=== PATIENT | female | born 1990 | race Two or more races ===

== ENCOUNTER 2016-04-24 07:52 | Emergency (ER) | payer OTHER ==
[~2016-04-24] VITALS: Ht 160 cm; Wt 110.0 kg
[2016-04-24 07:55] VITALS: Ht 160 cm; Wt 110.0 kg
[2016-04-24] MEDS ORDERED: AMO500 PO (08:49)
[2016-04-24] MEDS ORDERED: IBUP-1542 PO (08:50)
--- NOTE | 2016-04-24 08:56 | ERD ---
ER Documentation Chief Complaint Date/Time DATE: 04/24/16 TIME: 08:[address],cough x 4 days HPI 25-year-old female who presents to the emergency department today complaining of sore throat for the past 4 days. States it is worse this morning. States she is having difficulty swallowing. States she has also had intermittent cough. States she is taking Advil for pain. Dates she thinks that yesterday she had a fever. This is a Denies any vomiting, headache or diarrhea ROS All systems reviewed and are negative except as per history of present illness. Medications Home Meds Active Scripts Ibuprofen* (Motrin*) 600 Mg Tab, 600 MG PO Q6, #30 TAB Prov:PAULO PICKARD PA-C 04/24/16 Amoxicillin* (Amoxicillin*) 500 Mg Cap, 500 MG PO TID for 10 Days, CAP Prov:PAULO PICKARD PA-C 04/24/16 Allergies Allergies: Coded Allergies: No Known Allergies (Verified Allergy, Mild, 03/04/11) PMhx/Soc History of Surgery: Yes (C/SECTION X1) Anesthesia Reaction: No Hx Neurological Disorder: No Hx Respiratory Disorders: No Hx Cardiac Disorders: No Hx Psychiatric Problems: No Hx Miscellaneous Medical Probl: No Hx Alcohol Use: No Hx Substance Use: No Hx Tobacco Use: No Physical Exam Vitals Vital Signs Date Time Temp Pulse Resp B/P Pulse Ox O2 Delivery O2 Flow Rate FiO2 04/24/16 07:55 98.3 89 18 121/72 99 Physical Exam Const: B's, No acute distress Head: Atraumatic Eyes: Normal Conjunctiva ENT: Ears TMs normal. Nose no drainage. Throat with bilateral tonsillar swelling and right-sided tonsillar exudate. Erythematous. Tenderness to palpation bilateral submandibular lymph nodes Neck: Full range of motion..~ No meningismus. Resp: Clear to auscultation bilaterally Cardio: Regular rate and rhythm, no murmurs Abd: Soft, non tender, non distended. Normal bowel sounds Ext: No cyanosis, or edema Neur: Awake and alert Psych: Normal Mood and Affect Results 24 hrs Current Medications Medications (Trade) Dose Ordered Sig/Kevin Route PRN Reason Start Time Stop Time Status Last Admin Dose Admin Dexamethasone (Decadron) 10 mg ONCE ONCE IM 04/24/16 09:00 04/24/16 09:01 04/24/16 08:37 Procedures/MDM This is 25-year-old female who presents to the emergency department today complaining of sore throat for the past 4 days. On physical exam patient has bilateral tonsillar swelling and right-sided tonsillar exudate. Patient's symptoms at this time is consistent with strep pharyngitis. Did consider peritonsillar abscess and retropharyngeal abscess. Patient is able to talk. She is afebrile here in the emergency department. Her oxygen saturation is 99%. Patient was instructed to begin taking her antibiotic right away and return for any worsening of symptoms or difficulty swallowing or breathing.I have low suspicion for otitis media, PNA, sinusitis, abscess, meningitis, sepsis, or other acute infectious bacterial process. She was given Decadron here in the emergency department to help decrease swelling. She declined pain medication here in the emergency department. Given a prescription for amoxicillin and Motrin. At this time the patient is stable for discharge and outpatient management. They should follow up with their PCP in the next 1-2. They may return to the emergency department sooner if symptoms persist or worsen. Patient understood and agreed with the plan. Departure Diagnosis: Primary Impression: Sore throat Condition: Fair Patient Instructions: Pharyngitis, Strep (Presumed) Referrals: MALLY CARRERO (PCP) Additional Instructions: Call your primary care doctor TOMORROW for an appointment during the next 1-2 days.See the doctor sooner or return here if your condition worsens before your appointment time. Return for any worsening of symptoms Take antibiotics as prescribed Take Motrin or Tylenol for pain PAULO PICKARD PA-C Apr 24, 2016 08:55
[2016-04-24] MEDS ORDERED: DEXAMETHASONE 10 MG/ML 1 ML INJ IM ONE (09:00)
== END 2016-04-24 08:56 | disposition home or self-care (01) ==
LOC: FTE 07:52
DX: J02.9 Acute pharyngitis, unspecified (principal)
CPT/HCPCS: 96372; J1100; Z7502

== ENCOUNTER 2017-05-18 22:28 | Emergency (ER) | END 2017-05-19 01:10 | disposition left against medical advice (07) ==

== ENCOUNTER 2017-05-20 14:34 | Emergency (ER) | END 2017-05-20 15:04 | disposition home or self-care (01) ==

== ENCOUNTER 2018-05-19 10:19 | Emergency (ER) | payer OTHER ==
[~2018-05-19] VITALS: Ht 162.6 cm; Wt 119.6 kg
[~2018-05-19 10:19] MED LIST: AMOX500C2 PO; CYCL10TA7 PO; IBUP-1542 PO; NAPR-985 PO
[2018-05-19 10:21] VITALS: Ht 162.6 cm; Wt 119.6 kg
[2018-05-19] MEDS ORDERED: IBUPROFEN 800 MG TAB PO ONE (11:00)
[2018-05-19] MEDS ORDERED: IBUP800T48 PO (11:09)
[2018-05-19] MEDS ORDERED: HYDR-3980 PO (11:09)
--- NOTE | 2018-05-19 11:12 | ERD ---
ER Documentation Chief Complaint Chief Complaint Left chest pain HPI This is a 26-year-old female who states she went to sleep last night when she got in bed she was laying down on her left side and she felt sharp pain on the left costosternal margin. She says she is able to fall asleep and woke up with the pain still there. She said the pain is very sharp and worse with movement of the trunk and left arm. Denies any trauma or recent pushing pulling injury. No shortness of breath no radiation of pain no recent cough or illness. ROS All systems reviewed and are negative except as per history of present illness. Medications Home Meds Active Scripts Hydrocodone/Acetaminophen ([place] 10-325 Tablet) 1 Each Tablet, 1 TAB PO Q6H PRN for PAIN, #7 TAB Prov:CINDY FRIEDMAN DO 05/19/18 Ibuprofen* (Motrin*) 800 Mg Tab, 800 MG PO Q6H PRN for PAIN AND OR ELEVATED TEMP, #30 TAB Prov:CINDY FRIEDMAN DO 05/19/18 Cyclobenzaprine Hcl* (Cyclobenzaprine Hcl*) 10 Mg Tablet, 10 MG PO Q8 PRN for spasm, #15 TAB Prov:PAIGE NAIDU-C 05/20/17 Naproxen* (Naprosyn*) 500 Mg Tablet, 500 MG PO BID PRN for PAIN AND/OR INFLAMMATION, #30 TAB Prov:PAIGE NAIDU-C 05/20/17 Ibuprofen* (Motrin*) 600 Mg Tab, 600 MG PO Q6, #30 TAB Prov:PAULO PICKARD PA-C 04/24/16 Amoxicillin* (Amoxicillin*) 500 Mg Cap, 500 MG PO TID for 10 Days, CAP Prov:PAULO PICKARDC 04/24/16 Allergies Allergies: Coded Allergies: No Known Allergies (Verified Allergy, Mild, 03/04/11) PMhx/Soc History of Surgery: Yes (C/SECTION X1) Anesthesia Reaction: No Hx Neurological Disorder: No Hx Respiratory Disorders: No Hx Cardiac Disorders: No Hx Psychiatric Problems: No Hx Miscellaneous Medical Probl: No Hx Alcohol Use: No Hx Substance Use: No Hx Tobacco Use: No Smoking Status: Never smoker FmHx Family History: No coronary disease Physical Exam Vitals Vital Signs Date Temp Pulse Resp B/P (MAP) Pulse Ox O2 O2 Flow FiO2 Time Delivery Rate 05/19/18 99.1 89 18 128/79 99 10:21 (95) Physical Exam Const: Well-developed, well-nourished Head: Atraumatic, normocephalic Eyes: Normal Conjunctiva, PERRLA, EOMI, normal sclera, no nystagmus ENT: Normal External Ears, Nose and Mouth, moist mucus membranes. Neck: Full range of motion. No meningismus, no lymphadenopathy. Resp: Clear to auscultation bilaterally, no wheezing, rhonchi, rales Cardio: Regular rate and rhythm, no murmurs, S1 S2 present, there is severe reproducible chest wall pain to the left costosternal margin on her ribs 4 and 5. There is reproducible pain also with range of motion of the left upper extremity Abd: Soft, non tender x 4, non distended. Normal bowel sounds, no guarding or rebound, no pulsitile abdominal masses or bruits Skin: No petechiae or rashes, no ecchymosis , no maculopapular rash Back: No midline or flank tenderness Ext: No cyanosis, or edema, FROM x 4, normal inspection, neurovascularly intact x 4 Neur: Awake and alert, STR 5/5 x 4, sensation intact x 4, no focal findings, cerebellum intact Psych: Normal Mood and Affect Results 24 hrs Current Medications Medications Dose Sig/Kevin Start Time Status Last (Trade) Ordered Route PRN Stop Time Admin Dose Reason Admin Ibuprofen 800 mg ONCE ONCE 05/19/18 DC 05/19/18 (Motrin) PO 11:00 11:04 05/19/18 11:01 Procedures/MDM EKG: Rate/Rhythm: Normal Sinus Rhythm,NL intervals QRS, ST, QT: NORMAL ID, QRS, QT] Impression: NORMAL EKG The patient has reproducible pain that is severe and her symptoms are consistent with costochondritis Departure Diagnosis: Primary Impression: Costochondritis Condition: Stable Patient Instructions: CINDY Moffett DO May 19, 2018 11:12
[2018-05-19 11:43] VITALS: BP 112/74; PULSE 88; RESP 18
== END 2018-05-19 11:52 | disposition home or self-care (01) ==
LOC: E/R 10:19
DX: M94.0 Chondrocostal junction syndrome [Tietze] (principal)
CPT/HCPCS: Z7502; Z7610; 99283

== ENCOUNTER 2018-06-04 14:10 | Emergency (ER) | payer OTHER ==
[~2018-06-04] VITALS: Ht 170.2 cm; Wt 121.7 kg
[~2018-06-04 14:10] MED LIST changes: -AMOX500C2 PO; -CYCL10TA7 PO; +HYDR-3980 PO; -IBUP-1542 PO; +IBUP800T48 PO; -NAPR-985 PO
[2018-06-04 14:26] VITALS: BP 133/86; PULSE 75; RESP 20; Ht 170.2 cm; Wt 121.7 kg
[2018-06-04] MEDS ORDERED: KETOROLAC 60 MG INJ IM STA (15:41)
[2018-06-04] MEDS ORDERED: NAPR-985 PO (16:43)
--- NOTE | 2018-06-04 17:15 | ERD ---
ER Documentation Chief Complaint Chief Complaint Complains of right arm pain after a fall HPI 27-year-old female patient with no significant past medical history presents to ED complaining of right arm pain. Patient reports that it feels swollen. Rates her pain a 10 out of 10. States that she took ibuprofen at home with minimal relief. Describes as a sharp sensation. Denies any chest pain, shortness of breath, nausea, vomiting, pleuritic chest pain, fever, chills, abdominal pain, neck stiffness, headache, dizziness. ROS All systems reviewed and are negative except as per history of present illness. Medications Home Meds Active Scripts Naproxen* (Naprosyn*) 500 Mg Tablet, 500 MG PO BID PRN for PAIN AND/OR INFLAMMATION, #30 TAB Prov:BRENDA PHAN PA-C 06/04/18 Hydrocodone/Acetaminophen ([place] 10-325 Tablet) 1 Each Tablet, 1 TAB PO Q6H PRN for PAIN, #7 TAB Prov:LEKKOS,APOSTOLOS A. DO 05/19/18 Ibuprofen* (Motrin*) 800 Mg Tab, 800 MG PO Q6H PRN for PAIN AND OR ELEVATED T EMP, #30 TAB Prov:LEKKOS,APOSTOLOS A. DO 05/19/18 Allergies Allergies: Coded Allergies: No Known Allergies (Verified Allergy, Mild, 05/19/18) PMhx/Soc History of Surgery: Yes (C/SECTION X1) Anesthesia Reaction: No Hx Neurological Disorder: No Hx Respiratory Disorders: No Hx Cardiac Disorders: No Hx Psychiatric Problems: No Hx Miscellaneous Medical Probl: No Hx Alcohol Use: No Hx Substance Use: No Hx Tobacco Use: No Smoking Status: Never smoker FmHx Family History: No diabetes, No coronary disease Physical Exam Vitals Vital Signs Date Temp Pulse Resp B/P (MAP) Pulse Ox O2 O2 Flow FiO2 Time Delivery Rate 06/04/18 98.8 75 20 133/86 99 14:26 (102) Physical Exam Const: [id number], well-nourished. In no acute distress. Head: Atraumatic, normocephalic Eyes: Normal Conjunctiva without injection ENT: Normal external ear, nose and mouth. Neck: Full range of motion. No meningismus. Resp: Clear to auscultation bilaterally. No wheezing, rhonchi, rales, or crackles. No accessory muscle use. No retractions. Cardio: Regular rate and rhythm, no murmurs Skin: No petechiae or rashes Back: No midline tenderness. No CVA tenderness. Ext: No cyanosis, or edema. Cap refill less than 2 seconds. Distal pulses intact bilaterally. Tenderness palpation of the right anterior humerus. No erythema, warmth to touch, edema noted. Limited range of motion of the right shoulder with abduction, abduction, flexion, extension, internal and external rotation due to pain. Patient was able to supinate, pronate, bilateral elbows as well as flex and extend. Full range of motion of the DIP, PIP, MCP joints of bilateral hands as well as flexion and extension of the wrist with heel and lateral deviation intact. Neur: Awake and alert. Normal gait and coordination. Muscle strength 5/5. Sensation intact bilaterally. Psych: Normal Mood and Affect Results 24 hrs Laboratory Tests Test 06/04/18 15:59 POC Beta HCG, Qualitative NEGATIVE Current Medications Medications Dose Sig/Kevin Start Time Status Last (Trade) Ordered Route PRN Stop Time Admin Dose Reason Admin Ketorolac 60 mg ONCE STAT 06/04/18 DC 06/04/18 Tromethamine IM 15:41 16:11 (Toradol) 06/04/18 15:42 Procedures/MDM 27-year-old female patient with no significant past medical history presents to ED complaining of right shoulder pain. Patient is afebrile and nontoxic- appearing. Patient's blood pressure is 133/86. Blood Pressure Assessment: Patient's blood pressure was elevated (>120/80) but appears stable without evidence of hypertension emergency or urgency. The patient was counseled about the risks of hypertension and urged to pursue outpatient monitoring and therapy within a week with their primary care physician. Urine negative. Patient given Toradol 60 mg IM with improvement of her pain and range of motion. Patient is now able to fully flex, extend, internally and externally rotating her right shoulder as well as full range of motion with abduction and abduction. IMPRESSION: 1. Unremarkable right shoulder x-ray series. 2. No acute fracture or dislocation is seen. Differentials include calcific tendinitis. Low suspicion for frozen shoulder. Patient's extremity symptoms have stabilized while they have been evaluated in the department and are appropriate for outpatient follow up. No evidence of fractures, dislocations, compartment syndrome, neurologic injury, vascular injury, open joint, open fracture, tendon laceration, septic arthritis, osteom yelitis, DVT, foreign body, or other emergent conditions. Diagnosis: Right shoulder pain Discharge medications: Naproxen Follow up with primary care physician in 1-2 days. Instructed patient to return to the ED sooner for any worsening symptoms. Patient's questions were answered. Patient is hemodynamically stable. Patient understood and agreed with discharge plan. Patient discharged stable. Disclaimer: Inadvertent spelling and grammatical errors are likely due to EHR/dictation software use and do not reflect on the overall quality of patient care. Also, please note that the electronic time recorded on this note does not necessarily reflect the actual time of the patient encounter. Departure Diagnosis: Primary Impression: Right shoulder pain Chronicity: acute Qualified Codes: M25.511 - Pain in right shoulder Condition: Stable Patient Instructions: Tendonitis, Shoulder Pain (Uncertain Cause) Referrals: [facility] YOU HAVE RECEIVED A MEDICAL SCREENING EXAM AND THE RESULTS INDICATE THAT YOU DO NOT HAVE A CONDITION THAT REQUIRES URGENT TREATMENT IN THE EMERGENCY DEPARTMENT. FURTHER EVALUATION AND TREATMENT OF YOUR CONDITION CAN WAIT UNTIL YOU ARE SEEN IN YOUR DOCTORS OFFICE WITHIN THE NEXT 1-2 DAYS. IT IS YOUR RESPONSIBILITY TO MAKE AN APPOINTMENT FOR FOL-UP CARE. IF YOU HAVE A PRIMARY DOCTOR --you should call your primary doctor and schedule an appointment IF YOU DO NOT HAVE A PRIMARY DOCTOR YOU CAN CALL OUR PHYSICIAN REFERRAL HOTLINE AT IF YOU CAN NOT AFFORD TO SEE A PHYSICIAN YOU CAN CHOSE FROM THE FOLLOWING [facility] [address] [facility]. [facility] [address] [facility] [facility] [address] [facility]. [facility] [address] [facility]. [facility] [address] [facility]. [facility]. [address] [facility]. [facility] YOU HAVE RECEIVED A MEDICAL SCREENING EXAM AND THE RESULTS INDICATE THAT YOU DO NOT HAVE A CONDITION THAT REQUIRES URGENT TREATMENT IN THE EMERGENCY DEPARTMENT. FURTHER EVALUATION AND TREATMENT OF YOUR CONDITION CAN WAIT UNTIL YOU ARE SEEN IN YOUR DOCTORS OFFICE WITHIN THE NEXT 1-2 DAYS. IT IS YOUR RESPONSIBILITY TO MAKE AN APPOINTMENT FOR FOLOW-UP CARE. IF YOU HAVE A PRIMARY DOCTOR --you should call your primary doctor and schedule and appointment IF YOU DO NOT HAVE A PRIMARY DOCTOR YOU CAN CALL OUR PHYSICIAN REFERRAL HOTLINE AT . IF YOU CAN NOT AFFORD TO SEE A PHYSICIAN YOU CAN CHOSE FROM THE FOLLOWING [facility] INSTITUTIONS: [facility] [address] [place] [address] [facility] [address] [place] [address] [facility] [address] [place] [address] [facility] Urgent Care 7 a.m.- 11 p.m. Every Day of the Week NO APPOINTMENT OR AUTHORIZATION NEEDED [facility] Hours: 8:00 am - 5:[address] [facility] Hours: Mon-Fri 9:00 AM - 5:00 PM Additional Instructions: Call your primary care doctor TOMORROW for an appointment during the next 2-3 days for a referral to see an orthopedic physician/physical therapist for furt her treatment.See the doctor sooner or return here if your condition worsens before your appointment time. BRENDA PHAN PA-C Jun 04, 2018 17:15
== END 2018-06-04 16:52 | disposition home or self-care (01) ==
LOC: FTE 14:10
DX: M25.511 Pain in right shoulder (principal)
CPT/HCPCS: 73030; 81025; 96372; J1885; Z7502

== ENCOUNTER 2018-08-28 22:27 | Emergency (ER) | payer OTHER ==
[~2018-08-28] VITALS: Ht 160 cm; Wt 98.1 kg
[~2018-08-28 22:27] MED LIST changes: +NAPR-985 PO
[2018-08-28 22:29] VITALS: Ht 160 cm; Wt 98.1 kg
[2018-08-28] MEDS ORDERED: KETOROLAC 30 MG INJ IM STA (23:20)
--- NOTE | 2018-08-28 23:20 | ERD ---
ER Documentation Chief Complaint Chief Complaint L ankle s/p fall, unable to walk. good CMS HPI This is a 28-year-old female who presents here in the emergency department with complaints of left ankle pain. Stated that she was [place] [employer], [place], jumped, landed on her left ankle, heard a pop. Unable to walk due to pain after this. Patient complained of excruciating pain to her left ankle. LMP: August 11, 2018. G1, P2 (twins) A0. Denies headache, head injury, loss of consciousness, dizziness, neck pain, neck stiffness, throat pain, difficulty swallowing, difficulty breathing lying flat, shoulder pain, chest pain, back pain, abdominal pain, nausea, vomiting, constipation, diarrhea, urinary symptoms, or possibility being , loss of bowel and bladder control, numbness or tingling sensation, calf pain, recent travel, recent major surgery in the last 3 weeks, calf pain, recent long travel, recent exposure to any illness, recent antibiotic use in the last 3 months, fever, chills, seizures. Past medical history: Surgical history: x1. Social: Denies smoking, use of alcoholic beverages, use of illegal drugs. ROS All systems reviewed and are negative except as per history of present illness. Medications Home Meds Active Scripts Ibuprofen* (Motrin*) 800 Mg Tab, 800 MG PO Q6H PRN for PAIN AND OR ELEVATED TEMP, #30 TAB Prov:JAMES LAURENT 08/29/18 Naproxen* (Naprosyn*) 500 Mg Tablet, 500 MG PO BID PRN for PAIN AND/OR INFLAMMATION, #30 TAB Prov:BRENDA PHAN PA-C 06/04/18 Hydrocodone/Acetaminophen ([place] 10-325 Tablet) 1 Each Tablet, 1 TAB PO Q6H PRN for PAIN, #7 TAB Prov:LEKKOS,APOSTOLOS A. DO 05/19/18 Ibuprofen* (Motrin*) 800 Mg Tab, 800 MG PO Q6H PRN for PAIN AND OR ELEVATED T EMP, #30 TAB Prov:LEKKOS,APOSTOLOS A. DO 05/19/18 Allergies Allergies: Coded Allergies: No Known Allergies (Verified Allergy, Mild, 05/19/18) PMhx/Soc History of Surgery: Yes (C/SECTION X1) Anesthesia Reaction: No Hx Neurological Disorder: No Hx Respiratory Disorders: No Hx Cardiac Disorders: No Hx Psychiatric Problems: No Hx Miscellaneous Medical Probl: No Hx Alcohol Use: No Hx Substance Use: No Hx Tobacco Use: No Physical Exam Vitals Physical Exam Const: No acute distress Head: Atraumatic Eyes: Normal Conjunctiva ENT: Normal External Ears, Nose and Mouth. Neck: Full range of motion. No meningismus. Resp: Clear to auscultation bilaterally Cardio: Regular rate and rhythm, no murmurs Abd: Soft, non tender, non distended. Normal bowel sounds Skin: No petechiae or rashes Back: No midline or flank tenderness. C-spine/T-spine/L-spine are midline with good and full range of motion and is no swelling/deformity/bulging/point of tenderness. No saddle anesthesia. Ext: No cyanosis, or edema. Left tibia and fibula: Proximal and distal aspect has tenderness to palpation. No obvious deformity. No calf tenderness. Left ankle: Swelling noted. No obvious deformity. Limited range of motion due to pain. Skin is intact. Left foot: Tenderness to palpation. Swelling noted. No obvious deformity. Left pedal pulses within normal limits. Left toes has good and full range of motion. Left knee is unremarkable. Bilateral hips are s table and unremarkable. Right lower extremity is unremarkable. Capillary feels to bilateral lower extremities are less than 2 seconds. Neur: Awake and alert. No neurological deficit. Psych: Normal Mood and Affect Results 24 hrs Laboratory Tests Test 08/28/18 23:49 POC Beta HCG, Qualitative NEGATIVE Current Medications Medications Dose Sig/Kevin Start Time Status Last (Trade) Ordered Route PRN Stop Time Admin Dose Reason Admin Ketorolac 30 mg ONCE STAT 08/28/18 DC 08/29/18 Tromethamine IM 23:20 00:02 (Toradol) 08/28/18 23:23 1 tab ONCE ONCE 08/28/18 DC 08/29/18 Acetaminophen PO 23:30 00:01 / 08/28/18 23:31 Hydrocodone Bitart ([place] (5/325)) 25 mg ONCE ONCE 08/29/18 DC 08/29/18 Diphenhydrami PO 02:30 02:43 ne HCl 08/29/18 02:31 (Benadryl) Ondansetron 4 mg ONCE STAT 08/29/18 DC 08/29/18 HCl (Zofran ODT 02:28 02:43 Odt) 08/29/18 02:30 Procedures/MDM Diagnostic tests: POC urine : Negative. X-ray of the left tibia and fibula: No acute fracture. X-ray of the left ankle: Soft tissue swelling is greater over the medial malleolus, without evident acute fracture. X-ray of the left foot: No acute fracture. Treatment: Toradol IM. [place] p.o. Splint/Bony wrap application. Ortho boot. Crutches with crutch training was also provided by EMT. Re-evaluation: No neurovascular deficit prior to and after the application of splint/Bony wrap. Stated that she feels much better at this time. Stated that she feels comfortable to go home. Differential diagnosis I have low suspicion for displaced fracture, DVT, compartment syndrome, Lisfranc fracture, open fracture. Final diagnosis: Ankle sprain. Prescription: Motrin. Follow-up with PCP in the next 24-48 hours. Follow-up with orthopedic nurse practitioner in the next 24 to 48 hours. Come back here in the emergency department for any new symptoms or any worsening symptoms. All questions and concerns were answered. Patient and family members verbalized understanding and agreed with plan of care. Hemodynamically stable on discharge. Departure Diagnosis: Primary Impression: Ankle injury Additional Impression: Ankle sprain Condition: Stable Additional Instructions: Follow-up with PCP in the next 24-48 hours. Follow-up with orthopedic nurse practitioner in the next 24 to 48 hours. Come back here in the emergency department for any new symptoms or any worsening symptoms. JAMES LAURENT Aug 28, 2018 23:20
[2018-08-28] MEDS ORDERED: HYDROCODONE/APAP (5/325) TAB PO ONE (23:30)
[2018-08-29] MEDS ORDERED: ONDANSETRON (ODT) 4 MG TAB ODT STA (02:28)
[2018-08-29] MEDS ORDERED: DIPHENHYDRAMINE 25 MG CAP PO ONE (02:30)
[2018-08-29] MEDS ORDERED: IBUP800T48 PO (02:32)
[2018-08-29 03:00] VITALS: BP 130/70; PULSE 76; RESP 17
== END 2018-08-29 03:00 | disposition home or self-care (01) ==
LOC: FTE 22:27
DX: S93.402A Sprain of unspecified ligament of left ankle, initial encounter (principal); W17.89XA Other fall from one level to another, initial encounter; Y92.9 Unspecified place or not applicable
CPT/HCPCS: 73590; 73610; 73630; 81025; 96372; J1885; Z7502; Z7610